=== PATIENT | female | born 1995 | race Caucasian/White ===

== ENCOUNTER 2016-10-21 02:05 | Emergency (ER) | payer SELFPAY ==
[~2016-10-21] VITALS: Ht 162.6 cm; Wt 54.5 kg
[2016-10-21 03:08] VITALS: BP 112/76
== END 2016-10-21 03:15 | disposition home or self-care (01) ==
LOC: EMS 02:07
DX: R07.89 Other chest pain (principal); R06.02 Shortness of breath
CPT/HCPCS: 93005; 99284